=== PATIENT | female | born 1970 | race Caucasian/White ===

== ENCOUNTER 2019-12-03 11:23 | Emergency (ER) | payer SELFPAY ==
[~2019-12-03] VITALS: Ht 170.2 cm; Wt 48.6 kg
[2019-12-03 11:39] VITALS: BP 133/85
[2019-12-03] MEDS ORDERED: PROPARACAINE OPHTH 0.5%, 15ML EACHEYE ONE (12:30)
[2019-12-03] MEDS ORDERED: FLUORESCEIN OPHTHALMIC 1 MG STRIP EACHEYE ONE (12:30)
--- NOTE | 2019-12-03 13:55 | NUR ---
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
[2019-12-03] MEDS ORDERED: PROPARACAINE OPHTH 0.5%, 15ML ONE (14:06)
[2019-12-03] MEDS ORDERED: FLUORESCEIN OPHTHALMIC 1 MG STRIP ONE (14:06)
--- NOTE | 2019-12-03 14:26 | NUR ---
Assumed care of patient. C/O vesicles from left parietal scalp, across forehead to midline and around left eye. Patient reports pain and itching starting 3 days ago with vesicles erupting yesterday. Possible secondary infection as patient reports picking at vesicles. IDA Lovell did observe eye involvement on exam with walton lamp.
[2019-12-03] MEDS ORDERED: HYDROcodone/APAP 5/325 TABLET PO ONE (14:30)
[2019-12-03] MEDS ORDERED: SULFAMETH./TRIMETHOPRIM DS 800MG/160MG TABLET PO ONE (14:30)
[2019-12-03] MEDS ORDERED: HYDROcodone/APAP 5/325 TABLET ONE (14:54)
[2019-12-03] MEDS ORDERED: SULFAMETH./TRIMETHOPRIM DS 800MG/160MG TABLET ONE (14:54)
[2019-12-03] MEDS ORDERED: CEPHALEXIN 500 MG CAPSULE ONE (14:54)
[2019-12-03] MEDS ORDERED: CEPHALEXIN 500 MG CAPSULE PO ONE (15:00)
--- NOTE | 2019-12-03 15:01 | NUR ---
Meds admin. No other needs.
--- NOTE | 2019-12-03 15:13 | NUR ---
Patient/Caregiver given discharge instructions and they have confirmed that they understand the instructions. Patient ambulatory with steady gait.
== END 2019-12-03 15:16 | disposition home or self-care (01) ==
LOC: ED 15:05
DX: L03.211 Cellulitis of face (principal); B02.9 Zoster without complications
CPT/HCPCS: 99284

== ENCOUNTER 2019-12-05 09:08 | Emergency (ER) | payer SELFPAY ==
[~2019-12-05] VITALS: Ht 170.2 cm; Wt 52.6 kg
[2019-12-05 09:30] VITALS: BP 124/81
--- NOTE | 2019-12-05 09:57 | NUR ---
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
== END 2019-12-05 11:18 | disposition home or self-care (01) ==
LOC: ED 10:27
DX: B02.9 Zoster without complications (principal); Z48.00 Encounter for change or removal of nonsurgical wound dressing
CPT/HCPCS: 99281